=== PATIENT | male | born 1990 | race Caucasian/White ===

== ENCOUNTER → 2017-09-24 | Outpatient (CLI) | payer OTHER ==
--- NOTE | 2017-09-24 19:36 | RADIOLOGY IMAGING REPORT ---
FACILITY: [facility] - [place] PATIENT NAME: Gustavo Horan : 1990 MR: [id number] V: [id number] EXAM DATE: ORDERING PHYSICIAN: JAVID SUAREZ TECHNOLOGIST: Location: [facility] [place] Patient: Gustavo Horan : 1990 Visit/Account:[id number] Date of Sevice: 09/24/2017 EXAMINATION: Scrotal ultrasound with duplex Doppler evaluation. HISTORY: Scrotal pain. COMPARISON: None. 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 Normal size and echogenicity of the solitary right testicle. No focal intratesticular mass. The right testicle measures 5.1 x 2.4 x 4.0 cm and demonstrates normal vascularity with color and spectral Dop pler. Normal appearance of the right epididymis, with normal vascularity. The epididymal head measures 0.9 cm. There is a 3 mm epididymal cysts along the head of the right epididymis. No significant hydrocele or varicocele. No scrotal fluid collection or hematoma. IMPRESSION: 1. Prior left orchiectomy. 2. Normal ultrasound appearance of the right testicle and epididymis. Report Dictated By: Seymour Desouza MD at 09/24/2017 7:27 PM Report E-Signed By: Seymour Desouza MD at 09/24/2017 7:31 PM WSN:[id number]
== END ==
LOC: US 18:06
PROVIDERS: ATTEND Nurse Practitioner Family
DX: N50.3 Cyst of epididymis (principal); Z90.79 Acquired absence of other genital organ(s)
CPT/HCPCS: 76870